=== PATIENT | female | born 1935 | race Caucasian/White ===

== ENCOUNTER 2017-01-25 16:07 | Inpatient (IN) | payer OTHER, BC ==
[~2017-01-25] VITALS: Ht 167.6 cm; Wt 76.0 kg
--- NOTE | ~2017-01-25 | EKG ---
[address] [address] ELECTROCARDIOGRAM REPORT Name: MARC BEST Room #: 444-P ADM IN M.R.#: [id number] Admission: 01/25/17 Attend Phys: Peter Mcguire MD Discharge: Date of : 37 Report #: [id number] THIS REPORT FOR: //name// [facility] ED Test Date: 2017-01-25 Test Time: 16:47:15 Pat Name: MARC BEST Department: Room: [facility] Gender: F [employer]: pranay : 1935 Requested By: Tori Chi Order Number: [id number] MD: Manolo Leone Measurements Intervals [place] Rate: 82 P: 58 NM: 165 QRS: -1 QRSD: 94 T: 36 QT: 412 QTc: 482 Interpretive Statements Sinus rhythm Borderline T abnormalities, anterior leads Baseline wander in lead(s) I,II,aVR,aVF Compared to ECG 07/11/2014 13:47:13 No significant changes Electronically Signed On 01-26-2017 8:21:31 CDT by Manolo Leone [email or web address] <ELECTRONICALLY SIGNED> By: Manolo Leone MD, [facility] 01/26/17 0821 [id number] Manolo Leone MD, [facility] /EPI
[~2017-01-25 16:07] MED LIST: ACYCLOVIR 800800 MG PO; ARICEPT 5 MG TAB5 MG PO; CALCIUM 500 +1 EAC5 PO; CALCIUM 600 +1 EAC1 PO; CEFTIN 250 MG250 MG PO; CIPROFLOXACIN500 M1 PO; CITRATE OF MAG296 ML PO; COLACE100 MG PO; COMPAZINE5 MG PO; CYMBALTA60 MG PO; DESYREL50 MG PO; FAMCYCLOVIR 50500 M1 PO; FLEXERIL PO; IBUPROFEN 600600 M1 PO; KEFLEX500 MG PO; LEVOTHROID88 MCG PO; METAMUCIL FIBE3.4 GM PO; MYRBETRIQ50 MG PO; NEURONTIN 300M300 M2 PO; NEURONTIN600 MG PO; NORCO 5-325 TA1 EACH PO; POTASSIUM20 PO; TOBREX5 ML OPHTHALMIC; TOPROL XL25 MG PO; TRAMADOL 50 MG50 MG PO; ULTRAM 50MG TAB50 MG; ULTRAM 50MG TAB50 MG PO; VERAPAMIL HCL360 MG PO; XANAX 0.5 MG0.5 M1 PO; ZOCOR 20 MG TAB20 M1 PO; ZYPREXA ZYDIS5 MG SUBLING
[2017-01-25 16:17] VITALS: BP 133/79
[2017-01-25 17:19] LABS: HEMOGLOBIN 10.6 gm/dL (12.0-15.0); MCH 30.1 pg (26.0-34.0); MCHC 34.1 g/dL (28.0-37.0); MCV 88.4 fL (80.0-100.0); PLATELET COUNT 323 thou/uL (150-400); RBC 3.51 mil/uL (4.20-5.00); RDW 14.4 % (10.5-14.5); WBC 15.1 thou/uL (4.0-11.0)
[2017-01-25 17:21] LABS: CALCIUM 8.4 mg/dL (8.5-10.1); CREATININE 2.1 mg/dL (0.6-1.0)
[2017-01-25 17:23] LABS: MANUAL DIFF YES
[2017-01-25 17:26] LABS: ALBUMIN 2.6 g/dL (3.4-5.0); TOTAL BILIRUBIN 0.5 mg/dL (<0.1-1.0); TOTAL PROTEIN 7.6 g/dL (6.4-8.2)
[2017-01-25 17:53] LABS: URINE BILIRUBIN NEGATIVE (Negative); URINE BLOOD 3+ (Negative); URINE COLOR YELLOW; URINE GLUCOSE-RANDOM* NEGATIVE (Negative); URINE KETONES NEGATIVE (Negative); URINE NITRITE POSITIVE (Negative); URINE PROTEIN (DIPSTICK) 2+ (Negative); URINE SPECIFIC GRAVITY 1.015 (1.003-1.035); URINE UROBILINOGEN 0.2 E.U./dl (0.2-1.0)
[2017-01-25 18:02] LABS: ABSOLUTE NEUTROPHILS 11.2 thou/uL (1.4-8.2); ANISOCYTOSIS 1+; METAMYELOCYTES 3 %; TOTAL CELL COUNT 100
[2017-01-25 18:03] LABS: MICROCYTES SLIGHT
[2017-01-25 18:26] LABS: BACTERIA 1-9 Few /HPF (None Seen); CASTS None Seen /LPF (None Seen); CRYSTALS None Seen /LPF (None Seen); SQUAMOUS 0-3 Few /LPF (0-3); URINE RBC 0-2 Rare /HPF (0-2); URINE WBC >25 Many /HPF (0-5)
[2017-01-25] MEDS ORDERED: NORVASC10 MG PO (19:12)
[2017-01-25] MEDS ORDERED: NAMENDA 10 MG T10 MG PO (19:13)
[2017-01-25] MEDS ORDERED: LOPERAMIDE 2 MG2 M1 PO (19:13)
[2017-01-25] MEDS ORDERED: OXYBUTYNIN 5 MG5 M2 PO (19:13)
[2017-01-25] MEDS ORDERED: ATIVAN0.5 MG PO (19:14)
[2017-01-25] MEDS ORDERED: ONDANSETRON HCL4 M2 PO (19:14)
[2017-01-25] MEDS ORDERED: ALEVE220 MG PO (19:14)
[2017-01-25 19:30] VITALS: BP 145/66
[2017-01-25 19:51] VITALS: BP 140/77
[2017-01-26 00:09] VITALS: BP 145/66
[2017-01-26 05:58] LABS: HEMATOCRIT 29.5 % (37.0-47.0); HEMOGLOBIN 10.1 gm/dL (12.0-15.0); MCH 30.1 pg (26.0-34.0); MCHC 34.1 g/dL (28.0-37.0); MCV 88.4 fL (80.0-100.0); RBC 3.34 mil/uL (4.20-5.00); RDW 13.8 % (10.5-14.5); WBC 12.3 thou/uL (4.0-11.0)
[2017-01-26 06:20] LABS: CALCIUM 8.6 mg/dL (8.5-10.1); CREATININE 1.9 mg/dL (0.6-1.0)
[2017-01-26 06:32] LABS: POTASSIUM 2.9 mmol/L (3.5-5.1)
[2017-01-26 07:35] VITALS: BP 137/73
[2017-01-26 12:25] VITALS: BP 139/67
[2017-01-26 16:00] VITALS: BP 140/79
[2017-01-26 19:53] VITALS: BP 133/60
[2017-01-27 04:06] VITALS: BP 141/69
[2017-01-27 06:05] LABS: HEMATOCRIT 29.4 % (37.0-47.0); HEMOGLOBIN 10.1 gm/dL (12.0-15.0); MCH 30.7 pg (26.0-34.0); MCHC 34.4 g/dL (28.0-37.0); MCV 89.1 fL (80.0-100.0); RBC 3.29 mil/uL (4.20-5.00); RDW 14.3 % (10.5-14.5)
[2017-01-27 06:29] LABS: CALCIUM 8.6 mg/dL (8.5-10.1); CREATININE 1.8 mg/dL (0.6-1.0); POTASSIUM 3.9 mmol/L (3.5-5.1)
[2017-01-27 07:42] VITALS: BP 80/47
[2017-01-27 08:27] VITALS: BP 144/71
[2017-01-27 15:57] VITALS: BP 140/73
[2017-01-27 21:10] VITALS: BP 141/74
[2017-01-27 22:57] VITALS: BP 127/63
[2017-01-28 04:35] VITALS: BP 148/83
[2017-01-28 06:03] LABS: HEMATOCRIT 31.9 % (37.0-47.0); HEMOGLOBIN 10.7 gm/dL (12.0-15.0); MCH 30.1 pg (26.0-34.0); MCHC 33.4 g/dL (28.0-37.0); MCV 90.1 fL (80.0-100.0); RBC 3.54 mil/uL (4.20-5.00); RDW 14.2 % (10.5-14.5); WBC 11.4 thou/uL (4.0-11.0)
[2017-01-28 06:12] LABS: CALCIUM 8.8 mg/dL (8.5-10.1); CREATININE 1.8 mg/dL (0.6-1.0); POTASSIUM 3.9 mmol/L (3.5-5.1)
[2017-01-28 07:36] VITALS: BP 155/73
[2017-01-28 15:43] VITALS: BP 145/64
[2017-01-28 20:19] VITALS: BP 154/73
[2017-01-29 03:33] VITALS: BP 170/90
[2017-01-29 03:35] LABS: HEMATOCRIT 28.7 % (37.0-47.0); HEMOGLOBIN 9.7 gm/dL (12.0-15.0); MCH 30.1 pg (26.0-34.0); MCHC 33.6 g/dL (28.0-37.0); MCV 89.5 fL (80.0-100.0); RBC 3.21 mil/uL (4.20-5.00); WBC 13.8 thou/uL (4.0-11.0)
[2017-01-29 03:56] LABS: CREATININE 1.7 mg/dL (0.6-1.0); POTASSIUM 3.2 mmol/L (3.5-5.1)
[2017-01-29 08:00] VITALS: BP 132/62
[2017-01-29 16:00] VITALS: BP 147/82
[2017-01-29 20:18] VITALS: BP 149/79
[2017-01-30 04:06] VITALS: BP 138/66
[2017-01-30 07:13] VITALS: BP 139/74
[2017-01-30 11:25] VITALS: BP 141/73
[2017-01-30] MEDS ORDERED: KEFLEX500 MG PO (12:38)
== END 2017-01-30 15:20 | DRG 682 ==
LOC: ER 16:07 → 4S 18:09 → EROBS 18:09 → 4S 19:33
PROVIDERS: Hospitalist; Nurse Practitioner Family
DX: N17.0 Acute kidney failure with tubular necrosis (principal); E43 Unspecified severe protein-calorie malnutrition; G93.40 Encephalopathy, unspecified; N39.0 Urinary tract infection, site not specified; N18.9 Chronic kidney disease, unspecified; M19.90 Unspecified osteoarthritis, unspecified site; I12.9 Hypertensive chronic kidney disease with stage 1 through stage 4 chronic kidney disease, or unspecified chronic kidney disease; F02.80 Dementia in other diseases classified elsewhere, unspecified severity, without behavioral disturbance, psychotic disturbance, mood disturbance, and anxiety; G30.9 Alzheimer's disease, unspecified; E03.9 Hypothyroidism, unspecified; E87.6 Hypokalemia; E78.5 Hyperlipidemia, unspecified; Z90.49 Acquired absence of other specified parts of digestive tract; Z68.27 Body mass index [BMI] 27.0-27.9, adult; Z88.6 Allergy status to analgesic agent; Z79.899 Other long term (current) drug therapy
CPT/HCPCS: 10195